=== PATIENT | female | born 1995 | race Caucasian/White ===

== ENCOUNTER → 2016-09-05 | Outpatient (CLI) | payer BC | LOC: C.LABSPEC 17:10 | PROVIDERS: ATTEND Nurse Practitioner Adult Health | DX: N39.0 Urinary tract infection, site not specified (principal) ==

== ENCOUNTER → 2016-10-09 | Outpatient (CLI) | payer BC ==
--- NOTE | 2016-10-09 12:48 | DIAGNOSTIC IMAGING REPORT ---
(RENAL)RETROPERITON COMP HISTORY:20 [id number] Recurrent urinary tract infection. COMPARISON: None available TECHNIQUE: Multiple real-time sonographic images of the bilateral kidneys and urinary bladder were obtained assessing grayscale appearance and color flow FINDINGS: The right kidney measures up to 10.4 cm in length and appears to be within normal limits without renal calculi or hydronephrosis. The left kidney measures up to 9.8 cm and is also within normal limits without renal calculi or hydronephrosis. Urinary bladder is unremarkable with bilateral ureteral jets. Follicular changes are seen within the ovaries which are only partially imaged. IMPRESSION: Unremarkable renal ultrasound without evidence of renal calculi or hydronephrosis. The above report was generated using voice recognition software. It may contain grammatical, syntax or spelling errors. Electronically signed by: Juanjose Hernandez M.D. 10/09/2016 12:46 PM Dictated Date/Time: 10/09/2016 12:44 PM
== END | disposition home or self-care (01) ==
LOC: C.ULTR 11:57
PROVIDERS: ATTEND Nurse Practitioner Adult Health
DX: N39.0 Urinary tract infection, site not specified (principal)

== ENCOUNTER → 2016-12-05 | Outpatient (CLI) | payer BC | END | disposition home or self-care (01) | LOC: C.LAB 14:03 | PROVIDERS: ATTEND Nurse Practitioner Family | DX: N39.0 Urinary tract infection, site not specified (principal) ==